=== PATIENT | female | born 1940 | race Caucasian/White ===

== ENCOUNTER 2016-09-26 07:43 | Day surgery (SDC) | payer MEDICARE ==
[~2016-09-26] VITALS: Ht 167.6 cm; Wt 77.1 kg
[~2016-09-26 07:43] MED LIST: ASCO-294 PO; CHOL10008 PO; COD1CAPS6 PO; MAGN200T PO; OMEP20CA11 PO; Sodium Chloride LOK Flush 10 mL Syringe IV PRN; TURM500C7 PO; fentaNYL-PF 50 mCg/mL 2 mL Inj IVPUSH PRN
[2016-09-26] MEDS ORDERED: 0.9% Sodium Chloride 1,000 ML ONE (08:30)
[2016-09-26] MEDS ORDERED: CALC500T9 PO (08:34)
[2016-09-26 08:35] VITALS: BP 130/69; PULSE 65; RESP 19; O2SAT 98
--- NOTE | 2016-09-26 09:18 | PCM.ENDCOL ---
Colonoscopy Date of Service: Sep 26, 2016 Physician Christopher De Los Santos MD Indication for Procedure Screening and personal history of polyp Post Procedure Dx & Findings: Polyp hemorrhoids diverticuli Procedure Colonoscopy Prep adequate withdrawal 17 minutes PROCEDURE IN DETAIL: After unremarkable rectal examination Olympus video colonoscope was inserted patient's anal canal is advanced to cecum. Landmarks were identified including the ileocecal valve and appendiceal orifice. Scope was withdrawn systematically. The mucosa of the cecum, ascending, transverse, descending, sigmoid, rectal mucosa lined with whitish, pink, smooth, glistening, normal-appearing mucosa, normal fine branching, underlying vascularity, normal haustra. The patient tolerated procedure and was transported to observation area. In the ascending colon, there was a 1 cm lipoma with positive pillow sign. Biopsy obtained. In the transverse colon there were 2 polyps which were 2 mm in size and 1 mm in size. 2 mm polyp was removed completely using cold snare. 1 mm polyp was removed completely using cold forceps. In the rectosigmoid junction, there was a 1 mm polyp which was resected completely using cold forcep. In the sigmoid colon there were a few medium-size diverticuli. In the rectum retroflexion was done which showed hemorrhoids. Anal canal was inspected carefully on the way out hemorrhoids noted. Impression Polyp 3 status post complete removal 1 cm lipoma status post biopsy. Diverticula Hemorrhoids Personal history of colon polyp Recommendation Repeat colonoscopy 3 years Diverticular diet Presedation Assessment Risks and Benefits Informed consent was obtained from the patient after all risks and benefits including but not limited to drug reaction, infection, pain, bleeding, perforation, as well as alternatives were discussed. Patient monitoring Continuous pulse oximetry, cardiac monitoring, blood pressure monitoring, IV access, and oxygen at 2L per nasal cannula. Periprocedural Fentanyl: Fentanyl 75mcg Incrementally Midazolam: Midazolam 3mg Incrementally Complications There were no periprocedural complications identified. Post Procedure Plan Post Procedure Recommendations 1. Restrict activities today. 2. Resume normal activities in the morning. 3. Resume medications. 4. Patient informed of normal post procedure side effects as bloating, drowsiness, blood streaking in the stool. 5. average risk CRCS. If colon polyps come back as: -Hyperplastic- can repeat colonoscopy in 10 years -Tubular adenoma- repeat colonoscopy in 5 years -Tubulovillous/villous adenoma- repeat colonoscopy in 3 years -If any dysplasia- return to clinic as soon as possible 6. Please don't hesitate to call me with any questions. Christopher De Los Santos MD Sep 26, 2016 09:18
[2016-09-26 09:20] VITALS: BP 107/63; PULSE 60; RESP 16; O2SAT 99
[2016-09-26 09:28] VITALS: BP 107/63; PULSE 58; RESP 12; O2SAT 96
[2016-09-26 09:31] VITALS: BP 117/63; PULSE 63; RESP 12; O2SAT 98
--- NOTE | 2016-09-30 10:09 | PATH ---
SURGICAL PATHOLOGY Attending Physician:Christopher De Los Santos M.D. CASE STATUS: Signed Out PATIENT NAME: TU HUTCHINS PID: [id number] : 1940 DATE COLLECTED:09/26/2016 20:42 SPECIMEN: 1: Colon, Biopsy 2: Colon, Biopsy 3: Colon, Biopsy CLINICAL HISTORY: 1). ASCENDING COLON LIPOMA BIOPSY 2). TRANSVERSE COLON POLYP BIOPSY X2 3). RECTO-SIGMOID COLON POLYP FINAL DIAGNOSIS: 1.ASCENDING COLON LIPOMA BIOPSY: SMALL FRAGMENT OF COLON MUCOSA WITH SUBMUCOSAL VASCULAR DILATATION, BUT NO EVIDENCE OF LIPOMA. Negative for dysplasia and malignancy. 2.TRANSVERSE COLON POLYP BIOPSY: TUBULAR ADENOMA INVOLVING SINGLE BIOPSY FRAGMENT AND POLYPOID-SHAPED FRAGMENT OF COLON MUCOSA ASSOCIATED WITH PROMINENT LYMPHOID AGGREGATE INVOLVING SINGLE BIOPSY FRAGMENT. 3.RECTOSIGMOID COLON POLYP: POLYPOID-SHAPED FRAGMENT OF COLON MUCOSA CONSISTENT WITH MUCOSAL POLYPOID REDUNDANCY. Negative for dysplasia and malignancy. ICD10 code D12.3 GROSS DESCRIPTION: The specimen is received in three formalin filled containers labeled with the patient's name. 1). The specimen is sublabeled "ascending colon lipoma" and consists of a 0.1 x 0.1 x 0.1 CM portion of tissue. The specimen is entirely submitted in cassette 1A. 2). The specimen is sublabeled "transverse colon polyp X2" and consists of 2 portions of tissue which aggregate to 0.3 x 0.3 x 0.2 CM. The specimen is entirely submitted in cassette 2A. 3). The specimen is sublabeled "recto sigmoid colon polyp" and consists of 2 portions of tissue which aggregate to 0.4 x 0.3 x 0.2 CM. The specimen is entirely submitted in cassette 3A. 09/26/2016 [facility] MICRO DESCRIPTION: See diagnosis. ICD-9 CODES: CPT CODES: 1: 84381 2: 59041 3: 29133 Electronically Signed Out Reilly Sue MD [facility] [address], [place] [address] Technical component performed at [facility], [address], [place], [address]
== END 2016-09-26 23:59 | disposition home or self-care (01) ==
LOC: END 07:43
PROVIDERS: ATTEND Internal Medicine
DX: Z12.11 Encounter for screening for malignant neoplasm of colon (principal); Z86.010 Personal history of colon polyps; D12.3 Benign neoplasm of transverse colon; K62.1 Rectal polyp; D17.5 Benign lipomatous neoplasm of intra-abdominal organs; K57.30 Diverticulosis of large intestine without perforation or abscess without bleeding; K64.9 Unspecified hemorrhoids
CPT/HCPCS: 45380; 88305; 99153; G0500; J2250; J3010; J7030